=== PATIENT | male | born 1995 | race Asian ===

== ENCOUNTER 2021-08-16 18:31 | Emergency (ER) | payer OTHER ==
[~2021-08-16] VITALS: Ht 175.3 cm; Wt 79.0 kg
[2021-08-16 20:00] VITALS: BP 108/60
[2021-08-16] MEDS ORDERED: DEXAMETHASONE 4MG/ML 1ML VIAL IV ONE (20:15)
== END 2021-08-16 20:56 | disposition home or self-care (01) ==
LOC: ER 18:31
DX: L50.0 Allergic urticaria (principal)
CPT/HCPCS: 96374; 99283; J1100